=== PATIENT | female | born 1990 | race Caucasian/White ===

== ENCOUNTER 2017-11-08 09:43 | Outpatient (CLI) | payer OTHER ==
[~2017-11-08 09:43] MED LIST: ADERAL; PROBIOTIC & AC1 EACH PO; TESSALON PERLE100 MG PO; TUSSI PRES-B L120 M1 PO
== END 2017-11-08 09:48 | disposition home or self-care (01) ==
LOC: SONOGRAMA 09:43
DX: R22.0 Localized swelling, mass and lump, head (principal)

== ENCOUNTER 2018-03-23 13:21 | Emergency (ER) | payer OTHER ==
[~2018-03-23] VITALS: Ht 175.3 cm; Wt 74.4 kg
== END 2018-03-23 16:51 | disposition home or self-care (01) ==
LOC: ER 13:21 → EMR PED 13:21 → ER 13:47 → EMR PED 13:47 → ER 16:51
DX: J06.9 Acute upper respiratory infection, unspecified (principal)

== ENCOUNTER 2019-12-24 15:12 | Outpatient (CLI) | payer OTHER | END 2019-12-24 17:30 | disposition home or self-care (01) | LOC: LAB 15:12 | DX: Z20.828 Contact with and (suspected) exposure to other viral communicable diseases (principal) ==

== ENCOUNTER 2020-03-24 09:15 | Outpatient (CLI) | payer OTHER | END 2020-03-24 09:20 | disposition home or self-care (01) | LOC: SONOGRAMA 09:15 | PROVIDERS: ATTEND Obstetrics & Gynecology | DX: N60.02 Solitary cyst of left breast (principal); N60.01 Solitary cyst of right breast; N64.59 Other signs and symptoms in breast ==

== ENCOUNTER 2020-04-28 08:34 | Outpatient (CLI) | payer OTHER | END 2020-04-28 10:33 | disposition home or self-care (01) | LOC: LAB 08:34 | DX: Z20.828 Contact with and (suspected) exposure to other viral communicable diseases (principal) ==

== ENCOUNTER 2020-12-31 08:00 | Outpatient (CLI) | payer OTHER | END 2020-12-31 08:30 | disposition home or self-care (01) | LOC: PPH VACUNA 08:00 | PROVIDERS: ATTEND Emergency Medicine Pediatric Emergency Medicine | DX: Z23 Encounter for immunization (principal) ==

== ENCOUNTER → 2021-03-21 08:12 | Outpatient (CLI) | payer OTHER | END | disposition home or self-care (01) | LOC: LAB 08:12 | PROVIDERS: ATTEND Emergency Medicine Pediatric Emergency Medicine | DX: Z03.818 Encounter for observation for suspected exposure to other biological agents ruled out (principal) ==

== ENCOUNTER 2022-06-13 09:01 | Outpatient (CLI) | payer OTHER | END 2022-06-13 09:14 | disposition home or self-care (01) | LOC: SONOGRAMA 09:01 | PROVIDERS: ATTEND Obstetrics & Gynecology | DX: Z12.31 Encounter for screening mammogram for malignant neoplasm of breast (principal); N63.0 Unspecified lump in unspecified breast; N64.4 Mastodynia; R92.2 Inconclusive mammogram ==

== ENCOUNTER → 2023-05-03 | Outpatient (CLI) | payer OTHER | END | disposition home or self-care (01) | LOC: RAD 09:33 | PROVIDERS: ATTEND Physical Medicine & Rehabilitation | DX: M22.2X1 Patellofemoral disorders, right knee (principal) ==

== ENCOUNTER 2024-02-29 12:11 | Outpatient (CLI) | payer OTHER | END 2024-02-29 12:27 | disposition home or self-care (01) | LOC: RAD 12:11 | PROVIDERS: ATTEND Internal Medicine Pulmonary Disease | DX: J45.31 Mild persistent asthma with (acute) exacerbation (principal) ==

== ENCOUNTER → 2024-07-30 09:49 | Outpatient (CLI) | payer OTHER ==
[2024-07-30 10:24] LABS: PH,URINE 6.5 (5.0-8.0); URINE APPEARANCE Clear; URINE BILIRRUBIN Negative (NEGATIVE); URINE BLOOD Negative; URINE COLOR Yellow; URINE GLUCOSE Negative (NEGATIVE); URINE KETONE Negative (NEGATIVE); URINE LEUKOCYTE Negative; URINE NITRATE Negative; URINE PROTEIN Negative (NEGATIVE); URINE UROBILINOGEN 0.2 E.U./dl
[2024-07-30 10:25] LABS: URINE BACTERIA 184.6 uL (0.0-1933); URINE EPITHELIAL CELLS 4.1 uL (0.0-38.8); URINE RBC 2.9 uL (0.0-20.8); URINE WBC 3.1 uL (0.0-23.2)
[2024-07-30 10:40] LABS: BASO % 0.5 % (0.1-1.2); EOS # 0.02 (0.04-0.54); EOS % 0.2 % (0.7-7.0); HEMATOCRIT 41.4 % (34.1-44.9); HEMOGLOBIN 13.8 g/dL (11.2-15.7); LYMPH # 2.01 (1.18-3.74); LYMPH % 23.5 % (19.3-53.1); MEAN CORPUSCULAR HEMOGLOBIN 31.1 pg (25.6-32.2); MONO # 0.44 (0.24-0.82); MONO % 5.1 % (4.7-12.5); NEUT % 70.2 % (34.0-71.1); PLATELET COUNT 311 K/uL (163-369); RED BLOOD COUNT 4.44 M/uL (3.93-5.22); RED CELL DISTRIBUTION WIDTH 12.7 % (11.6-14.4)
[2024-07-30 12:12] LABS: ALBUMIN 4.2 gm/dL (3.4-5.0); BILIRUBIN TOTAL 0.83 mg/dL (0.3-1.2); CALCIUM 9.2 mg/dL (8.5-10.1); CHOL HDL RATIO 3.1 (0-5.0); CREATININE SERUM 0.92 mg/dL (0.55-1.02); GFR 70.3; GLOBULINA 3.9 G/DL (2.4-3.5); POTASSIUM 3.94 mEq/L (3.5-5.1); T4 FREE 1.07 NG/ML (0.76-1.46); TOTAL PROTEIN 8.1 gm/dL (6.4-8.2); TSH 1.03 uIU/mL (0.358-3.74)
[2024-08-01 05:07] LABS: CA 125 13.9 U/mL (0.0-38.1); hav igm Negative (Negative); hcv Non Reactive (Non Reactive); hep b c Negative (Negative); hep b s ag Negative (Negative)
== END | disposition home or self-care (01) ==
LOC: LAB 09:49
PROVIDERS: ATTEND Obstetrics & Gynecology
DX: D64.9 Anemia, unspecified (principal); E03.8 Other specified hypothyroidism; N95.1 Menopausal and female climacteric states; I10 Essential (primary) hypertension; C51.9 Malignant neoplasm of vulva, unspecified; Z12.11 Encounter for screening for malignant neoplasm of colon; N30.00 Acute cystitis without hematuria; E83.51 Hypocalcemia; A64 Unspecified sexually transmitted disease; N39.0 Urinary tract infection, site not specified; R97.8 Other abnormal tumor markers; R79.89 Other specified abnormal findings of blood chemistry; E55.9 Vitamin D deficiency, unspecified; A60.9 Anogenital herpesviral infection, unspecified